=== PATIENT | male | born 1955 | race Caucasian/White ===

== ENCOUNTER → 2019-11-24 15:06 | Outpatient (CLI) | payer OTHER, SELFPAY ==
--- NOTE | 2019-11-24 | DI.MRI.S_ITS ---
PROCEDURE: MR SHOULDER RT WO/W CON INDICATIONS: ADHESIVE CAPSULITIS OF RIGHT SHOULDER TECHNIQUE: Noncontrast oblique coronal T1 spin echo and T2 fast spin echo with fat saturation, oblique sagittal T1 spin echo and T2 fast spin echo with fat saturation, axial T1 spin echo and T2 fast spin echo with fat saturation through the shoulder. Post-contrast oblique coronal, oblique sagittal, and axial T1 spin echo with fat saturation through the shoulder. COMPARISON: None. FINDINGS: Image quality: Diagnostic. Rotator cuff: No full-thickness or high-grade partial-thickness tear of the rotator cuff is identified. However, there is increased signal evident involving the distal margins of the supraspinatus, infraspinatus, subscapularis, and teres minor tendons with areas of probable low-grade partial-thickness tearing along the articular surface of the distal supraspinatus and infraspinatus tendons. There is increased signal evident involving the infraspinatus muscle with corresponding mild atrophy. There also is mild atrophy involving the supraspinatus muscle without associated muscle edema. The subscapularis and teres minor muscles demonstrate no significant atrophy. Bones and bursae: No acute fracture or suspicious osseous lesion is identified involving the osseous structures of the right shoulder. There is no dislocation. Mild posterior subluxation of the humeral head with respect to the glenoid is present. There mild degenerative changes of the glenohumeral joint with heterogeneity of the hyaline articular cartilage. No significant glenohumeral joint effusion is identified. There are moderate degenerative changes of the acromioclavicular joint with degenerative marrow edema present. No significant fluid is seen within the subacromial subdeltoid bursa. No suspicious enhancement of the osseous structures of the shoulder are present. Capsule and soft tissues: Evaluation of the labrum and glenohumeral ligaments is suboptimal without intra-articular contrast. No acute injuries involving the glenohumeral ligaments are appreciated. However, there may be slight increased signal within it the axillary pouch region that extends beyond the inferior joint capsule, which may represent a chronic or subacute injury of the inferior glenohumeral ligament (likely a perforated tear of the inferior glenohumeral ligament). Heterogeneity and irregularity of the posterosuperior labrum is suspicious for a small posterosuperior degenerative labral tear extending from at least the 12 o'clock position to the 3 o'clock position. Additional heterogeneity along the anterior labrum may represent additional labral tearing. The long head of the biceps tendon is normally positioned within the bicipital groove and is otherwise intact and unremarkable. No soft tissue masses or suspicious soft tissue enhancement is identified. There is mild edema evident within the deltoid muscle that is more pronounced on the lateral and anterior margins of the deltoid. Otherwise, the remainder of the overlying soft tissues are unremarkable. No axillary lymphadenopathy is appreciated on the provided images. IMPRESSION: 1. No convincing MR findings of adhesive capsulitis. 2. Low-grade partial-thickness tearing and tendinopathy of the rotator cuff, as described. No full-thickness tear. 3. Probable small perforating tear of the inferior glenohumeral ligament. 4. Probable tearing along the posterosuperior and anterior margins of the labrum are not well characterized. 5. [id number] degenerative changes of the glenohumeral and acromioclavicular joints, as described. 6. Increased signal involving the deltoid and infraspinatus muscles is suspicious for muscle strains. However, a neurogenic process involving the infraspinatus tendon related to a nerve impingement process cannot be completely excluded given corresponding mild muscle atrophy. 7. No suspicious soft tissue or bony enhancement. Dictated by: Michael Aleman M.D. on 11/24/2019 at 16:09 Approved by: Michael Aleman M.D. on 11/24/2019 at 16:16
== END ==
PROVIDERS: PCP Family Medicine; Referring Provider Family Medicine; Visit Provider Family Medicine
DX: M75.01 Adhesive capsulitis of right shoulder (principal); M75.111 Incomplete rotator cuff tear or rupture of right shoulder, not specified as traumatic
CPT/HCPCS: 73223